=== PATIENT | female | born 1985 | race Caucasian/White ===

== ENCOUNTER 2023-10-26 02:25 | Emergency (ER) | payer OTHER, SELFPAY ==
[2023-10-26] VITALS (9 sets, daily range): BP systolic 117–163; BP diastolic 59–100; PULSE 54–71; RESP 17–24; TEMP 36.6; O2SAT 97–100
--- NOTE | ~2023-10-26 | XR_ITS ---
XR chest 1V portable DATE: 10/26/2023 03:58 INDICATION: Midline chest pain TECHNIQUE: Portable AP chest on October 26, 2023 at 0355 hours COMPARISON: None FINDINGS: Normal heart size. No hilar or mediastinal enlargement is evident. The lungs are clear of i nfiltrate or consolidation. No pleural effusion or pulmonary vascular congestion or pneumothorax. Double density behind the heart in the right paraspinal area may be due to hiatal hernia. IMPRESSION: No active cardiopulmonary disease Possible hiatal hernia Reviewed, dictated and finalized at location A.
--- NOTE | 2023-10-26 02:44 | ED.GENADULT ---
HPI - General Adult General Chief complaint: Anxiety Stated complaint: CP SECONDARY TO ANXIETY X 2 HOURS Time Seen by Provider: 10/26/23 02:34 History of Present Illness HPI narrative: This is a 38-year-old female history of anxiety presenting for anxiety attack. Patient typically takes clonazepam 0.5 mg p.r.n.. She has not taken any today. She started develop chest pain/shortness of breath/tingling in her hands and feet/crawling out of her skin and feelings of overwhelming dread around midnight. She then called EMS and was brought to hospital for further evaluation. Patient is currently in town for a traveling sports determined. She is from [place]. Patient says she has anxiety attacks about once per month Related Data Allergies Allergy/AdvReac Type Severity Reaction Status Date / Time No Known Allergies Allergy Verified 10/26/23 02:44 [facility] Past Medical History Medical History Anxiety Social History Social History Substance use type: does not use Exam Narrative: APPEARANCE: patient is bed, she cannot seem to sit still, she is intermittently tearful, Head: atraumatic. EYES: EOMI, NOSE: Atraumatic NECK: Trachea midline RESPIRATORY: No increased rate of breathing, CTAB CARDIOVASCULAR: RRR, no peripheral edema ABDOMINAL: Non-distended soft nontender MUSCULOSKELETAl: No obvious deformities NEURO: Alert. Moving 4/4 extremities SKIN:: Warm, dry. Normal color PSYCHIATRIC: anxious appearing Course Vital Signs Vital signs: Vital Signs Temperature 97.8 F 10/26/23 02:30 Pulse Rate 71 10/26/23 02:30 Respiratory Rate 24 H 10/26/23 02:30 Blood Pressure 159/82 H 10/26/23 02:30 Pulse Oximetry 100 10/26/23 02:30 Oxygen Delivery Room Air 10/26/23 02:30 Temperature 97.8 F 10/26/23 02:30 Pulse Rate 55 L 10/26/23 03:48 Respiratory Rate 20 10/26/23 03:48 Blood Pressure 144/59 H 10/26/23 03:48 Pulse Oximetry 100 10/26/23 03:48 Oxygen Delivery Room Air 10/26/23 02:30 Medical Decision Making MDM Narrative Medical decision making narrative: -Course: 38-year-old female with history of panic attacks presenting with anxiety. Patient received Ativan, Benadryl and fluids with improvement her symptoms. Screening lab work, chest x-ray, EKG within normal limits. On re-evaluation the patient is sleeping comfortably in bed. She is comfortable going home. She has clonazepam if needed. Given return precautions. -Co-morbidities complicating care: panic disorder -Independent interpretation of studies: labs are within normal limits chest x-ray normal EKG without ischemic changes -Dx tests considered but not ordered: PERC negative. -Interventions: 1 mg Ativan complete 5 mg Benadryl 1 saline Maalox -Shared decision making / Disposition:d/c Vital Signs Vital Signs: Vital Signs Temperature 97.8 F 10/26/23 02:30 Pulse Rate 71 10/26/23 02:30 Respiratory Rate 24 H 10/26/23 02:30 Blood Pressure 159/82 H 10/26/23 02:30 Pulse Oximetry 100 10/26/23 02:30 Oxygen Delivery Room Air 10/26/23 02:30 Temperature 97.8 F 10/26/23 02:30 Pulse Rate 55 L 10/26/23 03:48 Respiratory Rate 20 10/26/23 03:48 Blood Pressure 144/59 H 10/26/23 03:48 Pulse Oximetry 100 10/26/23 03:48 Oxygen Delivery Room Air 10/26/23 02:30 Lab Data 10/26/23 03:38 10/26/23 03:38 Labs: Lab Results 10/26/23 Range/Units 03:38 WBC 8.3 (4.5-10.0) K/mm3 RBC 4.42 (4.2-5.4) M/mm3 Hgb 14.5 (12.0-15.0) g/dL Hct 40.8 (37.0-47.0) % MCV 92.3 (80-100) fl MCH 32.8 (26-34) pg MCHC 35.5 (32-36) g/dl RDW 13.3 (11.5-14.5) % Plt Count 200 (150-375) k/mm3 MPV 10.5 H (7.4-10.4) fl Immature Gran % (Auto) 0.4 (0-0.5) % Neut % (Auto) 77.0 H (45.5-73.1) % Lymph % (Auto) 16.9 L (18.3-44.2) % Vance % (Aut
[2023-10-26] MEDS: LORazepam INJ (*CRX) 2 MG/ML VIAL 1 MG IV PUSH (02:54)
[2023-10-26] MEDS: Please add drug allergy info to patient profile. 1 EACH XX (02:56)
[2023-10-26] MEDS: SODIUM CHLORIDE 0.9% IV 1,000 ML 999 ML IV CONT (03:33)
[2023-10-26] MEDS: MAG HYDROX/AL HYDROX/SIMETH 30 ML UDC PO (03:33)
[2023-10-26] MEDS: diphenhydrAMINE HCl INJ 50 MG/ML VIAL 25 MG IV PUSH (03:33)
[2023-10-26 03:44] LABS: Basophils Percent Auto 0.2 % (0.2-1.2); Eosinophils Percent Auto 0.1 % (0-4.4); Hematocrit 40.8 % (37.0-47.0); Hemoglobin 14.5 g/dL (12.0-15.0); Immature Granulocyte Absolute 0.03 K/mm3 (0.00-0.031); Immature Granulocyte Percent A 0.4 % (0-0.5); Lymphocytes Percent Auto 16.9 % (18.3-44.2); Mean Corpuscular HGB Conc 35.5 g/dl (32-36); Mean Corpuscular Hemoglobin 32.8 pg (26-34); Mean Corpuscular Volume 92.3 fl (80-100); Mean Platelet Volume 10.5 fl (7.4-10.4); Monocytes Absolute Auto 0.5 K/mm3 (0.1-0.6); Monocytes Percent Auto 5.4 % (2.6-8.5); Neutrophils Absolute Auto 6.4 K/mm3 (1.3-6.7); Platelet Count Result 200 k/mm3 (150-375); Red Blood Count 4.42 M/mm3 (4.2-5.4); Red Cell Distribution Width 13.3 % (11.5-14.5); White Blood Count 8.3 K/mm3 (4.5-10.0)
[2023-10-26 03:55] LABS: Alanine Aminotransferase 28 U/L (6-35); Albumin Level 4.8 g/dL (3.5-5.1); Alkaline Phosphatase 78 U/L (38-126); Anion Gap 17 mmol/L (4-12); Aspartate Amino Transferase 32 U/L (14-36); Bilirubin,Total 1.3 mg/dL (0.2-1.3); Blood Urea Nitrogen 8 mg/dL (7-17); Calcium 9.5 mg/dL (8.4-10.2); Carbon Dioxide 16 mmol/L (22-30); Chloride 111 mmol/L (98-107); Estimated CRCL calculation 138 ml/min; Estimated Glomerular Filt Rate > 60; Glucose 139 mg/dL (65-110); Magnesium 1.7 mg/dL (1.6-2.3); Potassium 3.4 mmol/L (3.4-5.0); Sodium 144 mmol/L (137-145)
[2023-10-26 04:06] LABS: Troponin I < 0.012 ng/mL (0.000-0.034)
== END 2023-10-26 04:44 | disposition home or self-care (01) ==
PROVIDERS: Emergency Provider Emergency Medicine
DX: F41.9 Anxiety disorder, unspecified (principal)
CPT/HCPCS: 36415; 71045; 80053; 83735; 84443; 84484; 85025; 96361; 96374; 96375; 99284; A9270; J1200; J2060; J7030